=== PATIENT | female | born 2005 | race Caucasian/White ===

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

== ENCOUNTER 2024-03-22 11:19 | Emergency (ER) | payer OTHER, SELFPAY ==
[2024-03-22 11:36] VITALS: BP 105/71; PULSE 93; RESP 16; TEMP 36.8; O2SAT 100
[2024-03-22 11:37] VITALS: BP 105/71; PULSE 93; RESP 16; TEMP 36.8; O2SAT 100
--- NOTE | 2024-03-22 12:06 | ED.EYEPROB ---
HPI - Eye Problem General Chief complaint: Eye Problems Stated complaint: Left Eye Irritation Time Seen by Provider: 03/22/24 12:06 Source: patient Mode of arrival: ambulatory Limitations: no limitations History of Present Illness HPI Narrative: 18-year-old female presents with complaint of redness pain drainage from left eye for 1-2 days. Patient reports that she had false eyelashes removed approximately 1 week ago. Has been using a eyelashes serum to regrow eyelashes. Also recently slept in eye makeup. Does not wear contacts. No eye pain but has some tenderness to L upper eyelid. All systems reviewed and negative except as noted above. Related Data Home Medications Medication Instructions Recorded Confirmed medroxyprogesterone 150 mg/mL 150 mg IM [id number] 02/17/23 03/22/24 intramuscular syringe Allergies Allergy/AdvReac Type Severity Reaction Status Date / Time No Known Drug Allergies Allergy Rash Verified 03/22/24 11:36 Review of Systems Review of Systems: CONSTITUTIONAL: Denies fever, chills, or sweats. EYES: Denies visual changes . Reports redness, discharge, left upper eyelid redness and swelling. ENT: Denies rhinorrhea, congestion, sore throat, or otalgia. CARDIOVASCULAR: Denies chest pain, palpitations, or edema. RESPIRATORY: Denies cough or dyspnea. GASTROINTESTINAL: Denies abdominal pain, nausea, vomiting, or diarrhea. GENITOURINARY: Denies dysuria or hematuria. SKIN: Denies rash or itching. MUSCULOSKELETAL: Denies back pain, joint pain, or myalgia. NEUROLOGIC: Denies headache, numbness, or weakness. PSYCHIATRIC: Denies anxiety or depression. All other systems reviewed are negative, except as documented in HPI. [facility] Past Medical History Medical History (Updated 03/22/24 @ 12:13 by Julissa Schneider NP) No pertinent past medical history Surgical History Surgical History (Updated 02/20/23 @ 23:00 by Evelyn Barth NP) No history of previous surgery Social History Social History (Updated 02/20/23 @ 23:01 by Evelyn Barth NP) Smoking status: Current every day smoker Tobacco type: e-cigarettes/vaping Alcohol intake: unknown Substance use type: does not use Living arrangements: with family Gender identity (if verbalized by the patient): Female Comments At time of signature, agree with nursing past medical, surgical, social and family history. There is no relevant family history pertinent to the presenting complaint. Exam Narrative: GENERAL: This is a well-nourished, well-developed patient, in no apparent distress. HEAD: normocephalic, atraumatic. EYES: PERRL. Sclera and conjunctiva erythematous with purulent drainage to left eye. Right eye is normal. Left upper eyelid is swollen, erythematous concerning for possible periorbital cellulitis. Vision is grossly intact. EARS: External ears normal NOSE: External nose normal NECK: Neck supple, non-tender without lymphadenopathy, masses or thyromegaly. CARDIOVASCULAR: Regular rate and rhythm without murmurs, gallops, or rubs. RESPIRATORY: Clear to auscultation. Breath sounds equal bilaterally. No wheezes, rales, or rhonchi. SKIN: warm, Dry, intact with no suspicious lesions or rash, good texture and turgor. NEURO: awake, alert, and oriented to person, place and time. There were no obvious focal neurologic abnormalities. EXTREMITIES: No joint tenderness, effusion, or edema noted. Course Course Level of Care: Express Care Visit Vital Signs Vital signs: Vital Signs Temperature 36.8 C 03/22/24 11:36 Pulse Rate 93 03/22/24 11:36 Respiratory Rate 16 03/22/24 11:36 Blood Pressure 105/71 03/22/24 11:36 Pulse Oximetry 100 03/22/24 11:36 Oxygen Delivery Room Air 03/22/24 11:36 Temperature 36.8 C 03/22/24 11:37 Pulse Rate 93 03/22/24 11:37 Respiratory Rate 16 03/22/24 11:37 Blood Pressure 105/71 03/22/24 11:37 Pulse Oximetry 100 03/22/24 11:37 Oxygen
== END 2024-03-22 12:15 | disposition home or self-care (01) ==
PROVIDERS: Emergency Provider Nurse Practitioner Family
DX: L03.213 Periorbital cellulitis (principal); H10.32 Unspecified acute conjunctivitis, left eye; F17.290 Nicotine dependence, other tobacco product, uncomplicated
CPT/HCPCS: 99213; G0463

== ENCOUNTER 2024-03-31 16:24 | Emergency (ER) | payer OTHER, SELFPAY ==
--- NOTE | 2024-03-31 16:27 | ED.GENADULT ---
HPI - General Adult General Chief complaint: Skin/Abscess/Foreign Body Stated complaint: Rash Time Seen by Provider: 03/31/24 16:54 Source: patient, RN notes reviewed and old records reviewed Mode of arrival: ambulatory Limitations: no limitations History of Present Illness HPI narrative: 18-year-old female presents to the [facility] with complaints of a hives, itching since Monday, 2 days. No treatment prior to arrival States that she just finished an antibiotic for an infection Denies any new creams ointments lotions or detergents Denies any liver tongue swelling. No difficulty breathing. No chest pain or shortness of breath Related Data Home Medications Medication Instructions Recorded Confirmed medroxyprogesterone 150 mg/mL 150 mg IM [id number] 02/17/23 03/31/24 intramuscular syringe Allergies Allergy/AdvReac Type Severity Reaction Status Date / Time No Known Drug Allergies Allergy Rash Verified 03/31/24 16:34 Review of Systems Review of Systems: All systems reviewed & are unremarkable except as noted in HPI and below Constitutional: Constitutional: Reports no additional constitutional complaints Eyes: Eyes: Reports no additional eye complaints ENT: Reports system reviewed and no additional complaints, except as documented Cardiovascular: Cardiovascular: Reports no additional cardiovascular complaints, Denies chest pain and Denies dyspnea Respiratory: Respiratory: Reports no additional respiratory complaints, Denies chest congestion, Denies cough and Denies dyspnea Gastrointestinal: Gastrointestinal: Reports no additional gastrointestinal complaints, Denies abdominal pain, Denies nausea and Denies vomiting Musculoskeletal: Musculoskeletal: Reports no additional musculoskeletal complaints Integumentary/Breasts: Skin/Breast: Reports as per HPI and Reports rash Neurologic: Reports system reviewed and no additional complaints, except as documented Psychiatric: Psychiatric: Reports no additional psychiatric complaints Allergic/Immunologic: Allergic/Immunologic: Reports no additional allergic/immunologic complaints [facility] Past Medical History Medical History No pertinent past medical history Surgical History Surgical History No history of previous surgery Social History Social History Smoking status: Current every day smoker Tobacco type: e-cigarettes/vaping Alcohol intake: unknown Substance use type: does not use Living arrangements: with family Gender identity (if verbalized by the patient): Female Comments At the time of my signature, I reviewed and agree with the nursing past medical, surgical, social, and family history. There is no relevant family history pertinent to the patient complaint. Exam Const: General: cooperative, healthy appearing, comfortable, no acute distress, well developed, alert and well nourished Nutritional Appearance: well nourished Orientation/consciousness: patient oriented x3 Limitations: no limitations HENMT: Head: normal to inspection Ears: hearing grossly normal bilaterally and external ears normal Face/Nose/Sinus: Normal external nose present, Normal nares present, Normal nasal mucous membranes and turbinates present, normal facial exam and face symmetric Face and sinus: normal facial exam and face symmetric Mouth: Yes Normal oral and palatal mucosa present, Yes lip normal and Yes moist mucous membranes Throat: posterior oropharynx normal, uvula midline and no uvular edema Eyes: General: appearance normal, both eyes and all related structures Alignment and Position: alignment normal Periorbital: periorbital findings normal Pupils: Equal, round and reactive pupils present EOM: EOMs intact bilaterally Neck: Neck: normal visual inspection, full ROM, no lymphadenopathy and no meningeal sign
[2024-03-31 16:37] VITALS: BP 114/60; PULSE 90; RESP 16; TEMP 37; O2SAT 100
== END 2024-03-31 17:05 | disposition home or self-care (01) ==
PROVIDERS: Emergency Provider Nurse Practitioner; PCP Physician Assistant
DX: L50.9 Urticaria, unspecified (principal); F17.290 Nicotine dependence, other tobacco product, uncomplicated
CPT/HCPCS: 99213; G0463

== ENCOUNTER 2025-09-14 09:04 | Emergency (ER) | payer OTHER, SELFPAY ==
[2025-09-14 09:15] VITALS: BP 126/88; PULSE 78; RESP 17; TEMP 36.3; O2SAT 98
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
[2025-09-14 13:28] LABS: Hematocrit 42.0 % (37.0-47.0); Hemoglobin 14.1 g/dL (12.0-15.0); Immature Granulocyte Percent A 0.3 % (0-0.5); Lymphocytes Absolute Auto 2.32 K/mm3 (0.9-3.2); Mean Corpuscular HGB Conc 33.6 g/dl (32-36); Mean Corpuscular Hemoglobin 31.1 pg (26-34); Mean Corpuscular Volume 92.7 fl (80-100); Nucleated Red Blood Cells Absolute Auto 0.000 K/mm3 (0.0-0.012); Nucleated Red Blood Cells Perc 0.0 % (0.0-0.2); Platelet Count Result 330 k/mm3 (150-375); Red Blood Count 4.53 M/mm3 (4.2-5.4); White Blood Count 6.7 K/mm3 (4.5-10.0)
[2025-09-14 13:29] LABS: BEDSIDEPREGUCG Negative (Negative)
[2025-09-14 13:40] LABS: INR 1.0; Prothrombin Time 13.3 Seconds (11.1-14.7)
[2025-09-14 13:41] LABS: Partial Thromboplastin Time 27.9 Seconds (22.3-36.8)
[2025-09-14] MEDS: DOXYCYCLINE HYCLATE 100 MG TABLET PO (13:46)
[2025-09-14] MEDS: EMTRICITABINE-TENOFOVIR 100 MG-150 MG TABLET 2 TAB PO (13:47)
[2025-09-14 13:50] LABS: Alanine Aminotransferase 17 U/L (6-35); Albumin Level 4.6 g/dL (3.5-5.1); Alkaline Phosphatase 62 U/L (38-126); Anion Gap 14 mmol/L (4-12); Aspartate Amino Transferase 30 U/L (14-36); Bilirubin,Total 0.5 mg/dL (0.2-1.3); Blood Urea Nitrogen 10 mg/dL (7-17); Calcium 8.4 mg/dL (8.4-10.2); Carbon Dioxide 21 mmol/L (22-30); Chloride 107 mmol/L (98-107); Estimated CRCL calculation 110 ml/min; Estimated Glomerular Filt Rate > 60; Glucose 86 mg/dL (65-110); Potassium 4.1 mmol/L (3.4-5.0); Sodium 142 mmol/L (137-145); Total Protein 8.3 g/dL (6.3-8.2)
[2025-09-14] MEDS: cefTRIAXone 1 GM VIAL 0.5 GM IM (13:54)
[2025-09-14] MEDS: ONDANSETRON HCL ODT 4 MG TABLET PO (13:55)
[2025-09-14] MEDS: LIDOCAINE 1% LOCAL INJ 10 ML VIAL (13:55)
--- NOTE | 2025-09-14 14:00 | PC.NURSE ---
pt was offered a shower. pt declined saying I just want to go home
[2025-09-14 14:17] LABS: Syphilis IgG/IgM Antibody Non-Reactive (Nonreactive)
--- NOTE | 2025-09-14 14:20 | PC.NURSE ---
pt was given a resource folder by the [facility] nurse before discharge
[2025-09-14 14:33] LABS: Trichomonas Vag PCR NOT DETECTED (NOT DETECTE)
[2025-09-16 22:07] LABS: HIV-1 RNA Non Reactive (Non Reactive); HIV-2 RNA Non Reactive (Non Reactive)
== END 2025-09-14 15:07 | disposition home or self-care (01) ==
LOC: ANHED 12:48
PROVIDERS: Emergency Provider Student in an Organized Health Care Education/Training Program; PCP Emergency Medicine
DX: T74.21XA Adult sexual abuse, confirmed, initial encounter (principal); F17.290 Nicotine dependence, other tobacco product, uncomplicated; Y07.59 Other non-family member, perpetrator of maltreatment and neglect
CPT/HCPCS: 36415; 80053; 81025; 81513; 85025; 85610; 85730; 86593; 87491; 87535; 87591; 87661; 87798; 96372; 99285; A9270; J0696; J2003